=== PATIENT | male | born 1980 | race American Indian/Alaskan Native ===

== ENCOUNTER 2019-10-28 19:18 | Emergency (ER) | payer OTHER ==
[2019-10-28 20:08] VITALS: BP 118/66
[2019-10-28] MEDS ORDERED: ACETAMINOPHEN 500 MG TAB PO ONE (20:14)
[2019-10-28] MEDS ORDERED: KETOROLAC 30 MG/1 ML INJ IM ONE (20:14)
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
== END 2019-10-28 20:03 | disposition home or self-care (01) ==
LOC: ED 19:18
DX: M54.2 Cervicalgia (principal); M54.9 Dorsalgia, unspecified; F17.200 Nicotine dependence, unspecified, uncomplicated; V49.49XA Driver injured in collision with other motor vehicles in traffic accident, initial encounter; Y93.89 Activity, other specified; Y92.410 Unspecified street and highway as the place of occurrence of the external cause; Y99.8 Other external cause status
CPT/HCPCS: 96372; 99282; J1885